=== PATIENT | male | born 2000 | race Caucasian/White ===

== ENCOUNTER 2021-12-03 11:14 | Emergency (ER) | payer OTHER ==
[~2021-12-03] VITALS: Ht 193 cm; Wt 97.5 kg
[~2021-12-03 11:14] MED LIST: AZITHROMYCIN250 MG PO; FLAGYL500 MG PO
[2021-12-03 12:21] LABS: HEMOGLOBIN 14.2 gm/dl (14.0-17.5); RED BLOOD COUNT 4.85 M/UL (4.20-5.50); WHITE BLOOD COUNT 11.6 K/UL (4.5-11.0)
[2021-12-03 12:36] LABS: BUN/CREATININE RATIO 14 (0-10)
[2021-12-03] MEDS ORDERED: BACTRIM DS TAB1 EACH PO (15:29)
[2021-12-03] MEDS ORDERED: OMNICEF 300 MG300 MG PO (15:29)
== END 2021-12-03 15:45 | disposition left against medical advice (07) ==
LOC: ER1 11:14
PROVIDERS: Student in an Organized Health Care Education/Training Program
DX: L03.113 Cellulitis of right upper limb (principal); F17.200 Nicotine dependence, unspecified, uncomplicated
CPT/HCPCS: 73130; 80048; 83605; 85025; 85652; 86140; 87040; 96374; 96375; 99283; J0696; J3370; J7070

== ENCOUNTER 2021-12-04 20:15 | Emergency (ER) | payer OTHER ==
[~2021-12-04 20:15] MED LIST changes: +BACTRIM DS TAB1 EACH PO; +OMNICEF 300 MG300 MG PO
[2021-12-05 00:14] LABS: HEMOGLOBIN 13.1 gm/dl (14.0-17.5); RED BLOOD COUNT 4.54 M/UL (4.20-5.50); WHITE BLOOD COUNT 12.4 K/UL (4.5-11.0)
[2021-12-05 00:34] LABS: BUN/CREATININE RATIO 13 (0-10)
== END 2021-12-05 09:30 | disposition other institution (70) ==
LOC: ER1 20:15
PROVIDERS: Student in an Organized Health Care Education/Training Program
DX: L02.511 Cutaneous abscess of right hand (principal); F17.210 Nicotine dependence, cigarettes, uncomplicated
CPT/HCPCS: 73130; 73201; 80053; 83605; 85025; 85652; 86140; 87040; 96374; 96375; 96376; 99284; J1170; J2270; J2405; Q9967

== ENCOUNTER 2022-01-11 21:33 | Emergency (ER) | payer OTHER ==
[2022-01-11] MEDS ORDERED: CEPHALEXIN500 MG PO (22:59)
== END 2022-01-11 23:34 | disposition home or self-care (01) ==
LOC: ER1 21:33
DX: S93.402A Sprain of unspecified ligament of left ankle, initial encounter (principal); S90.812A Abrasion, left foot, initial encounter; S80.212A Abrasion, left knee, initial encounter; F17.210 Nicotine dependence, cigarettes, uncomplicated; F19.10 Other psychoactive substance abuse, uncomplicated; V29.9XXA Motorcycle rider (driver) (passenger) injured in unspecified traffic accident, initial encounter; Y92.410 Unspecified street and highway as the place of occurrence of the external cause
CPT/HCPCS: 71045; 73590; 73630; 99283